=== PATIENT | male | born 1965 | race Caucasian/White ===

== ENCOUNTER 2017-10-05 10:56 | Emergency (ER) | payer BC, OTHER ==
[2017-10-05 11:38] VITALS: BP 148/97
[2017-10-05] MEDS ORDERED: Tetan/Diph/Pertus SYR(Tdap)* 0.5 ML SYR(BOOSTRIX) use SYR IM ONE (11:43)
[2017-10-05] MEDS ORDERED: Lidocaine 1%* 5 ML VIAL INJ ONE (11:44)
--- NOTE | 2017-10-05 11:52 | UC ---
Hand/Wrist HPI - HPI Summary HPI Summary: Patient cut his index middle and ring fingers on the edge of some sharp steel while at work just prior to arrival. Last tetanus is unknown. No numbness tingling weakness or foreign body sensation. Denies any other injuries offers no other complaints. - History Of Current Complaint Chief Complaint: UCLaceration Stated Complaint: FINGER LACERATION Time Seen by Provider: 10/05/17 11:36 Hx Obtained From: Patient Onset/Duration: Sudden Onset Pain Intensity: 1 Alleviating Factor(s): Nothing Associated Signs And Symptoms: Negative: Weakness, Numbness/Tingling - Allergies/Home Medications Allergies/Adverse Reactions: Allergies Allergy/AdvReac Type Severity Reaction Status Date / Time Penicillins Allergy Airway Verified 10/05/17 11:34 Obstruction PMH/Surg Hx/FS Hx/Imm Hx Previously Healthy: Yes - Surgical History Surgical History: None - Family History Known Family History: Positive: None - Social History Occupation: Employed Full-time Alcohol Use: Occasionally Substance Use Type: None Smoking Status (MU): Never Smoked Tobacco - Immunization History Most Recent Influenza Vaccination: Not the Season Hx Tetanus, Diphtheria Vaccination: No Vaccination Up to Date: Yes Review of Systems Skin: Other - cut R hand Is Patient Immunocompromised?: No All Other Systems Reviewed And Are Negative: Yes Physical Exam Triage Information Reviewed: Yes Appearance: Well-Appearing Vital Signs: Initial Vital Signs Temp 98.6 F 10/05/17 11:28 Pulse 79 10/05/17 11:28 Resp 17 10/05/17 11:28 BP 148/97 10/05/17 11:28 Pulse Ox 99 10/05/17 11:28 Vital Signs Reviewed: Yes Eyes: Positive: Conjunctiva Clear ENT: Positive: Normal ENT inspection Neck: Positive: Supple, Nontender Respiratory: Positive: Lungs clear, Normal breath sounds Cardiovascular: Positive: RRR, No Murmur Abdomen Description: Positive: Nontender, No Organomegaly, Soft Bowel Sounds: Positive: Present Musculoskeletal: Positive: ROM Intact Neurological: Positive: Alert Psychological: Positive: Age Appropriate Behavior Skin Exam: Normal, Other - R Hand: Volar surface, 1 cm laceration right index finger with fatty tissue exposed no active bleeding. Middle finger very superficial laceration no bleeding or fatty tissue. Fourth finger 1.5 cm laceration with jagged edges fatty tissue seen mild venous bleeding. On superficial inspection, no tendon damage appreciated. All digits of the hand have full sensorivascular motor function. Hand/Wrist Course/Dx - Course Course Of Treatment: Procedures: All 3 wounds prep with Betadine. Local to index and fourth fingers with 1% lidocaine and 1 mL to each site. All 3 wounds inspected and no muscle, tendon or ligament injuries identified plus no foreign body seen. All wounds irrigated with copious amounts of sterile sodium chloride. Wound reprepped with Betadine and draped in sterile fashion index finger closed with 5-0 monofilament and a single horizontal mattress stitch. Middle finger required no closure. Fourth finger, jagged edges treated and wound closed with 5-0 monofilament and 3 interrupted stitches yielding good approximation of wound edges. Fingers had full vascular motor function post procedure. Patient tolerate procedure well. Wound stressed by nursing. Pt notes hands exposed to material that any contaminated and hand trouble with infections from wounds at work thus will cover with doxycycline. pt has pcn allergy with airway issues thus will avoid pcn/cephalosporins. - Differential Dx/Diagnosis Provider Diagnoses: 1. 1 cm laceration right index finger 2. Superficial laceration right middle finger no closure. 3. 1.5 cm laceration fourth finger Discharge - Sign-Out/Discharge Documenting (check all that apply): Patient Departure All imaging exams completed and their final reports reviewed: No Studies - Discharge Plan Condition: Stable Disposition: HOME Prescriptions: DOXYcycline CAP(*) [DOXYcycline 100MG CAP(*)] 100 mg PO BID 7 Days #14 cap Patient Education Materials: Care For Your Stitches (ED) Referrals: No Primary Care Phys,NOPCP [Primary Care Provider] - Additional Instructions: RETURN IN 7-10 DAYS FOR SUTURE REMOVAL. RETURN SOONER FOR ANY CONCERNS - Billing Disposition and Condition Condition: STABLE Disposition: Home
== END 2017-10-05 12:29 | disposition home or self-care (01) ==
LOC: UCCORT 10:56
DX: S61.212A Laceration without foreign body of right middle finger without damage to nail, initial encounter (principal); S61.210A Laceration without foreign body of right index finger without damage to nail, initial encounter; S61.214A Laceration without foreign body of right ring finger without damage to nail, initial encounter; W26.9XXA Contact with unspecified sharp object(s), initial encounter; Y92.9 Unspecified place or not applicable; Y99.0 Civilian activity done for income or pay; Z88.0 Allergy status to penicillin
CPT/HCPCS: 12001; 90471; 90715; 99212; G0463

== ENCOUNTER 2017-10-13 08:40 | Emergency (ER) | payer OTHER ==
[2017-10-13 08:51] VITALS: BP 139/89
--- NOTE | 2017-10-13 09:15 | ED ---
ED Suture/Wound Check - HPI Summary HPI Summary: 52 yr old male with request for suture removal. Had them put in a week ago. He states they healed well and no redness, swelling, but his right ring finger gets a shooting nerve type irritation when he moves his finger. No other complaints. - History Of Current Complaint Chief Complaint: UCLaceration Stated Complaint: WC SUTURE REMOVAL Time Seen by Provider: 10/13/17 08:53 Pain Intensity: 0 - Allergies/Home Medications Allergies/Adverse Reactions: Allergies Allergy/AdvReac Type Severity Reaction Status Date / Time Penicillins Allergy Airway Verified 10/13/17 08:48 Obstruction Home Medications: Home Medications NK [No Home Medications Reported] 10/13/17 [History Confirmed 10/13/17] PMH/Surg Hx/FS Hx/Imm Hx Endocrine/Hematology History: Denies: Hx Diabetes, Hx Thyroid Disease Cardiovascular History: Denies: Hx Hypertension, Hx Pacemaker/ICD Respiratory History: Denies: Hx Asthma, Hx Chronic Obstructive Pulmonary Disease (COPD) GI History: Denies: Hx Ulcer Sensory History: Denies: Hx Hearing Aid Psychiatric History: Denies: Hx Panic Disorder Infectious Disease History: No Infectious Disease History: Denies: Hx Hepatitis, Hx Human Immunodeficiency Virus (HIV), History Other Infectious Disease, Traveled Outside the [place] in Last 30 Days - Family History Known Family History: Positive: None - Social History Occupation: Employed Full-time Alcohol Use: Occasionally Substance Use Type: Reports: None Smoking Status (MU): Never Smoked Tobacco Review of Systems Constitutional: Negative Positive: Other - right ring finger odd sensation when flexes. All Other Systems Reviewed And Are Negative: Yes Physical Exam Triage Information Reviewed: Yes Vital Signs On Initial Exam: Initial Vitals Temp Pulse Resp BP Pulse Ox 97.7 F 68 15 139/89 98 10/13/17 08:46 10/13/17 08:46 10/13/17 08:46 10/13/17 08:46 10/13/17 08:46 Vital Signs Reviewed: Yes Appearance: Positive: Well-Appearing, No Pain Distress Skin: Positive: Warm, Skin Color Reflects Adequate Perfusion, Other - no redness , swelling, pus from the right hand. He has good approximation and healing of the lacerations. Head/Face: Positive: Normal Head/Face Inspection Eyes: Positive: EOMI ENT: Positive: Normal ENT inspection Neck: Positive: Nontender Respiratory/Lung Sounds: Positive: Other - normal effort Cardiovascular: Positive: Pulses are Symmetrical in both Upper and Lower Extremities - good cap refill hand Abdomen Description: Negative: Distended Musculoskeletal: Positive: Other - right hand with one stitch index volar and three over ring finger volar. He has intact superficial and profundus tendon strength ring and index finger right hand. Intact two point discrimination right hand. Neurological: Positive: Sensory/Motor Intact, Alert, Oriented to Person Place, Time Psychiatric: Positive: Normal Procedures - Procedure Summary Procedure Summary: one suture removed from the right hand index finger, three from the right hand ring finger. No redness or swelling or pus. Diagnostics - Vital Signs Vital Signs Temp Pulse Resp BP Pulse Ox 10/13/17 08:46 97.7 F 68 15 139/89 98 - Laboratory Lab Statement: Any lab studies that have been ordered have been reviewed, and results considered in the medical decision making process. Course/Dx - Course Course Of Treatment: 52 yr old male with possible right hand ring finger flex tendon injury. referred to Ortho, hand. - Clinical Impression Provider Diagnoses: Visit for suture removal, Injury of flexor tendon of right hand, Hypertension Discharge - Sign-Out/Discharge Documenting (check all that apply): Patient Departure All imaging exams completed and their final reports reviewed: No Studies - Discharge Plan Condition: Good Disposition: HOME Patient Education Materials: Hypertension (ED), Stitches Removal (ED) Referrals: No Primary Care Phys,NOPCP [Primary Care Provider] - Sherwin Juárez MD [Medical Doctor] - 1 Day Additional Instructions: You possibly have a tendon injury to the right ring finger. Please call Dr Juárez office to see the hand specialist for further evaluation. - Billing Disposition and Condition Condition: GOOD Disposition: Home
== END 2017-10-13 09:24 | disposition home or self-care (01) ==
LOC: UCCORT 08:40
DX: S61.210D Laceration without foreign body of right index finger without damage to nail, subsequent encounter (principal); S61.214D Laceration without foreign body of right ring finger without damage to nail, subsequent encounter; X58.XXXD Exposure to other specified factors, subsequent encounter; Y92.9 Unspecified place or not applicable; Z88.0 Allergy status to penicillin

== ENCOUNTER 2019-04-12 07:21 | Emergency (ER) | payer SELFPAY ==
[2019-04-12 07:45] VITALS: BP 131/97
--- NOTE | 2019-04-12 08:05 | UC ---
Respiratory Complaint HPI - HPI Summary HPI Summary: sinus pain and pressure x 10 days pain is 6 out 10 , worse with lying down , better with Tylenol green / brown nasal discharge, bilateral ear pain , pnd, cough , denies any fever, no chills, no body aches - History of Current Complaint Chief Complaint: UCGeneralIllness Stated Complaint: CHEST/SINUSES Time Seen by Provider: 04/12/19 07:40 Hx Obtained From: Patient Onset/Duration: Gradual Onset, Lasting Days - 8, Still Present Severity Initially: Moderate Severity Currently: Moderate Pain Intensity: 5 Pain Scale Used: 0-10 Numeric Character: Cough: Nonproductive Aggravating Factors: Allergens, Deep Breaths Alleviating Factors: Nothing Associated Signs And Symptoms: Positive: URI, Nasal Congestion. Negative: Dyspnea, Fever, Chills, Wheezing, Hemoptysis, Dizziness - Allergies/Home Medications Allergies/Adverse Reactions: Allergies Allergy/AdvReac Type Severity Reaction Status Date / Time Penicillins Allergy Airway Verified 04/12/19 07:45 Obstruction Home Medications: Home Medications DOXYcycline CAP(*) [DOXYcycline 100MG CAP(*)] 100 mg PO BID #20 cap 04/12/19 [Rx ] PMH/Surg Hx/FS Hx/Imm Hx Previously Healthy: Yes - Surgical History Surgical History: None - Family History Known Family History: Positive: None, Non-Contributory - Social History Alcohol Use: None Substance Use Type: None Smoking Status (MU): Never Smoked Tobacco - Immunization History Most Recent Influenza Vaccination: Not the 2014/2015 Season Hx Tetanus, Diphtheria Vaccination: No Vaccination Up to Date: Yes Review of Systems All Other Systems Reviewed And Are Negative: Yes Constitutional: Positive: Negative. Negative: Fever Skin: Positive: Negative Eyes: Positive: Negative ENT: Positive: Sore Throat, Nasal Discharge, Sinus Congestion, Sinus Pain/ Tenderness Respiratory: Positive: Cough Is Patient Immunocompromised?: No Physical Exam Triage Information Reviewed: Yes Appearance: Well-Appearing, No Pain Distress, Well-Nourished Vital Signs: Initial Vital Signs Temp 97.9 F 04/12/19 07:40 Pulse 76 04/12/19 07:40 Resp 18 04/12/19 07:40 BP 131/97 04/12/19 07:40 Pulse Ox 100 04/12/19 07:40 Vital Signs Reviewed: Yes Eye Exam: Normal Eyes: Positive: Conjunctiva Clear ENT: Positive: Normal ENT inspection, Pharynx normal, Nasal congestion, Nasal drainage, TMs normal, Sinus tenderness. Negative: Pharyngeal erythema, TM bulging, TM dull, TM red, Tonsillar swelling, Tonsillar exudate, Dental tenderness Neck: Positive: Supple, Nontender, No Lymphadenopathy Respiratory: Positive: Chest non-tender, Lungs clear, Normal breath sounds Cardiovascular: Positive: RRR, No Murmur, Pulses Normal Respiratory Course/Dx - Differential Dx/Diagnosis Provider Diagnosis: Sinusitis Discharge ED - Sign-Out/Discharge Documenting (check all that apply): Patient Departure All imaging exams completed and their final reports reviewed: No Studies - Discharge Plan Condition: Stable Disposition: HOME Prescriptions: DOXYcycline CAP(*) [DOXYcycline 100MG CAP(*)] 100 mg PO BID #20 cap Patient Education Materials: Sinusitis (ED) Referrals: No Primary Care Phys,NOPCP [Primary Care Provider] - If Needed - Billing Disposition and Condition Condition: STABLE Disposition: Home
== END 2019-04-12 08:00 | disposition home or self-care (01) ==
LOC: UCCORT 07:21
DX: J32.9 Chronic sinusitis, unspecified (principal); Z88.0 Allergy status to penicillin
CPT/HCPCS: 99212; G0463